=== PATIENT | female | born 1940 | race Caucasian/White ===

== ENCOUNTER 2017-10-23 08:06 | Outpatient (CLI) | payer MEDICARE ==
--- NOTE | 2017-10-23 10:00 | MRI ---
NONCONTRAST ENHANCED MRI LUMBAR SPINE: Date: 10-23-17 Comparison: 04-06-15 Technique: Multiplanar, multisequence noncontrast enhanced MRI images of the lumbar spine obtained. FINDINGS: Images demonstrate a small syrinx in the conus medullaris in the lower thoracic spine. T12-L1: There is a broad based central disc protrusion minimally but not significantly compressing th e thecal sac. The neural foramen are patent. L1-2: There is a broad based central disc protrusion minimally but not significantly compressing the thecal sac. The neural foramen are patent. L2-3: There is a broad based disc bulge with bilateral facet hypertrophy seen. No significant degree of central or neural foraminal narrowing is seen. L3-4: There is bilateral facet hypertrophy and ligamentum flavum hypertrophy. There is some minimal b road based disc bulge extending into the neural foramen. This results in mild to moderate left L3-4 n eural foraminal narrowing and minimal right sided neural foraminal narrowing. This is unchanged since the previous comparison exam. L4-5: Disc desiccation is seen. There is disc space height loss seen. There is a broad based disc bul ge with bilateral facet and ligamentum flavum hypertrophy. This results in moderate to severe central and lateral recess stenosis. The neural foramen demonstrate moderate bilateral neural foraminal narr owing due to the facet hypertrophy as well as the broad based disc bulge. This is stable and unchange d since the previous comparison exam. L5-S1: There is a mild broad based disc bulge and bilateral facet hypertrophy. No significant degree of central stenosis seen. Mild bilateral neural foraminal narrowing is seen. IMPRESSION: 1. Stable conus medullaris syrinx. 2. Multilevel lumbar degenerative changes with the most significant degree of stenosis being L4-5 res ulting in central and lateral recess stenosis as well as some neural foraminal narrowing. Overall MRI appearance is stable and unchanged since the previous comparison exam. POS: [facility]
== END 2017-10-23 08:07 | disposition home or self-care (01) ==
LOC: TBSIIMAG 08:06
PROVIDERS: ATTEND Anesthesiology Pain Medicine
DX: M47.26 Other spondylosis with radiculopathy, lumbar region (principal); M48.061 Spinal stenosis, lumbar region without neurogenic claudication; M99.83 Other biomechanical lesions of lumbar region
CPT/HCPCS: 72148

== ENCOUNTER 2018-03-19 09:11 | Outpatient (CLI) | payer MEDICARE | END 2018-03-19 09:12 | disposition home or self-care (01) | LOC: BICRAD 09:11 | PROVIDERS: ATTEND Anesthesiology Pain Medicine | DX: M16.0 Bilateral primary osteoarthritis of hip (principal); M47.896 Other spondylosis, lumbar region ==

== ENCOUNTER 2018-05-23 10:37 | Outpatient (CLI) | payer MEDICARE | END 2018-05-23 10:38 | disposition home or self-care (01) | LOC: LABBT 10:37 | PROVIDERS: ATTEND Neurological Surgery | DX: Z01.818 Encounter for other preprocedural examination (principal); M54.16 Radiculopathy, lumbar region | CPT/HCPCS: 93005; 93010 ==

== ENCOUNTER 2018-05-29 06:37 | Day surgery (SDC) | payer MEDICARE ==
[2018-05-23 10:41] VITALS: BMI 27.4
--- NOTE | 2018-05-29 07:14 | HP ---
HISTORY: Ms. Oleary is a 78-year-old woman known to us from previous evaluation of cervical pain wh o presents today for chronic left-sided thigh pain well as some anterior right thigh pain that she mcintyre s been receiving injections with Dr. Prakash for. She reports that the injections have been help ful but only for a limited period of time. She has an MRI that reveals lateral recess stenosis at L4 -5 L5 nerve root on the left. There is also some moderate foraminal stenosis associated there as well. She does have significant bilateral hip arthropathy, so this could also be a cause of her a nterior thigh pain as the pathology on the right at L4 and L3 is mild. I discussed her possible surg ical intervention and she hopes to proceed. PAST MEDICAL HISTORY: Significant for hypercholesterolemia, glaucoma, hypertension, arthritis, seaso nal allergies, hypercholesterolemia. PAST SURGICAL HISTORY: section x2; rectal surgery, unspecified; bladder sling; hysterectomy ; cholecystectomy; foot bunion resection; right knee replacement. CURRENT MEDICATIONS: Carvedilol, trazodone, fosinopril, sertraline, aspirin, poly glycol, Crestor. ALLERGIES: No known drug allergies. PHYSICAL EXAMINATION: The patient's motor sensory gait is mildly antalgic. Lower extremity motor ex am is normal. ASSESSMENT: Lumbar stenosis and radiculopathy. PLAN: Dr. Quezada met with the patient, reviewed imaging and offered for an L4-L5 decompression. He e xplained to the patient the risks, benefits, and alternatives of the procedure. The patient expresse d understanding. discussed. I do believe the patient is mentally competent and capable of niki ing medical decisions for herself and therefore her surgery was planned.
[2018-05-29] MEDS ORDERED: Levofloxacin 500 mg/D5W 100 ml Premix Bag ONE (07:34)
[2018-05-29] MEDS ORDERED: Clindamycin/D5W 900 mg/50 ml Premix Bag ONE (07:34)
[2018-05-29] MEDS ORDERED: Bupivacaine HCl 0.5%/Epinephrine 1:200,000/PF 30 ml Vial ONE (08:34)
[2018-05-29] MEDS ORDERED: Fentanyl 100 MCG/2 ML VIAL ONE (08:38)
--- NOTE | 2018-05-29 13:00 | OP ---
DATE OF PROCEDURE: 05/29/2018 SURGEON: Jake Quezada M.D. [facility] [employer] PROFESSOR: Edgar Coreas PA-C. INDICATION: Pain. DIAGNOSIS: Lumbar stenosis. PROCEDURE PERFORMED: L4-L5 lumbar decompression. ANESTHESIA: General. TECHNIQUE: The patient was brought into the operating room and placed under general anesthesia. She was flipped from a supine to prone position on the operating room table. A linear incision was plan danie over the L4-L5 segment. After prepping and draping and after an appropriate operative pause, the incision was created. Soft tissues were swept away from midline. A self-retaining retractor was pl aced in the wound for optimal exposure. After confirming the appropriate level with C-arm fluoroscop y, an Adson rongeur as well as a high-speed cutting drill bit as well as 2, 3 and 4 mm Kerrisons were used to perform a laminectomy along the inferior aspect of L4 and the superior aspect of L5. After complete decompression of the L4-L5 segment, the wound was irrigated. Hemostasis was maintained thro ughout. The wound was then closed in anatomic layers and a pressure dressing was applied. There wer e no known procedural complications.
== END 2018-05-29 12:25 | disposition home or self-care (01) ==
LOC: SDC 06:37
PROVIDERS: ATTEND Neurological Surgery
PROC: 01NB0ZZ Release Lumbar Nerve, Open Approach (ICD-10-PCS; principal; 2018-05-29)
DX: M48.061 Spinal stenosis, lumbar region without neurogenic claudication (principal); M54.16 Radiculopathy, lumbar region; E78.00 Pure hypercholesterolemia, unspecified; I10 Essential (primary) hypertension; M19.90 Unspecified osteoarthritis, unspecified site; Z79.82 Long term (current) use of aspirin; Z79.899 Other long term (current) drug therapy; Z96.651 Presence of right artificial knee joint; Z88.0 Allergy status to penicillin; Z88.2 Allergy status to sulfonamides; Z88.5 Allergy status to narcotic agent; Z88.8 Allergy status to other drugs, medicaments and biological substances; Z91.041 Radiographic dye allergy status
CPT/HCPCS: 76001; J0131; J0670; J1956; J3010; J3490

== ENCOUNTER 2018-12-03 08:56 | Outpatient (CLI) | payer MEDICARE ==
--- NOTE | 2018-12-03 09:43 | RAD ---
LUMBAR SPINE 2 VIEWS AP AND LATERAL: HISTORY: Fall with back pain. COMPARISON: Correlation is made to MRI lumbar spine from October 2017. FINDINGS: Lumbar vertebrae maintain height. The slight posterior listhesis at L1-2 appears stable from prior e xam. Loss of disk space at L4-5 and L5-S1 is stable from the MRI. Facet hypertrophy is noted. Dege nerative osteophytes. Mild wedging of the T12 vertebra is seen. This appears slightly more prominent than on the prior MRI . I cannot exclude an acute anterior wedge deformity. MRI could be performed to assess for edema of this vertebra if indicated. IMPRESSION: 1. Degenerative changes in the lumbar spine appear stable from prior MRI as described. 2. Mild anterior wedging of T12 may be slightly more prominent than on the prior MRI. POS: [facility]
== END 2018-12-03 08:57 | disposition home or self-care (01) ==
LOC: BICRAD 08:56
PROVIDERS: ATTEND Family Medicine
DX: W19.XXXA Unspecified fall, initial encounter (principal); M47.816 Spondylosis without myelopathy or radiculopathy, lumbar region
CPT/HCPCS: 72100

== ENCOUNTER 2018-12-20 08:19 | Outpatient (CLI) | payer MEDICARE ==
--- NOTE | 2018-12-20 09:28 | BD ---
BONE DENSITOMETRY: INDICATIONS: Postmenopausal osteoporosis screening. FINDINGS: BMD T-SCORE L1 0.909 -0.7 L2 0.931 -0.9 L3 1.037 -0.4 L4 1.055 -0.1 TOTAL 0.990 -0.5 FEMORAL NECK 0.651 -1.8 TOTAL 0.886 -0.5 IMPRESSION: 1. Bone mineral density of the lumbar spine within the normal range. 2. Bone mineral density of the femoral neck indicates osteopenia. TEN YEAR FRACTURE RISK: Major osteoporotic fracture: 14% Hip fracture: 3.4% POS: [facility]
== END 2018-12-20 08:20 | disposition home or self-care (01) ==
LOC: BICMAMMO 08:19
PROVIDERS: ATTEND Family Medicine
DX: Z13.820 Encounter for screening for osteoporosis (principal); S22.000A Wedge compression fracture of unspecified thoracic vertebra, initial encounter for closed fracture; M85.859 Other specified disorders of bone density and structure, unspecified thigh
CPT/HCPCS: 77080

== ENCOUNTER 2018-12-24 09:31 | Outpatient (CLI) | payer MEDICARE ==
--- NOTE | 2018-12-24 11:28 | MRI ---
MRI CERVICAL SPINE WITHOUT CONTRAST: HISTORY: Cervical spondylosis with radiculopathy. Numbness in the right arm times many years. Neck pain. COMPARISON: 03/06/2014 FINDINGS: Stable straightening of the normal cervical lordosis. There is 2.7 mm of anterolisthesis of C4 upon C5 and 2.3 mm of anterolisthesis of T1 upon T2. Cervical spine vertebral body height is maintained. No fracture. No significant STIR hyperintensity to suggest vertebral body edema or liga mentous injury. The visualized brain parenchyma, cervicomedullary junction, cervical cord, and upper thoracic cord have normal size and signal intensity. Redemonstration of an incidental hemangi chery along the left aspect of T3. C2-C3: No ssignificant central canal stenosis or neural foraminal narrowing. C3-C4: Broad-based disk osteophyte complex abuts the thecal sac. Ventral subarachnoid space is main tained. Moderate bilateral foraminal narrowing due to uncovertebral and facet hypertrophy. C4-C5: Broad-based disk osteophyte complex abuts the thecal sac. Mild to moderate central canal glenda nosis. Moderate to severe right and moderate left foraminal narrowing due to uncovertebral hypertrophy and right facet hypertrophy. C5-C6: Broad-based disk osteophyte complex with moderate central canal stenosis. Moderate to severe right and moderate left foraminal narrowing due to uncovertebral hypertrophy. C6-C7: Broad-based disk osteophyte complex abuts the thecal sac. Mild to moderate central canal glenda nosis. Moderate right and mild left foraminal narrowing. C7-T1: No significant central canal stenosis or neural foraminal narrowing. IMPRESSION: Degenerative changes of cervical spine, as detailed above. Transcribed Date/Time: 12/24/2018 12:34 PM
== END 2018-12-24 09:32 | disposition home or self-care (01) ==
LOC: BICMRI 09:31
PROVIDERS: ATTEND Anesthesiology Pain Medicine
DX: M47.22 Other spondylosis with radiculopathy, cervical region (principal)
CPT/HCPCS: 72141

== ENCOUNTER 2019-07-14 14:37 | Outpatient (CLI) | payer MEDICARE ==
--- NOTE | 2019-07-14 15:10 | MMO ---
Bilateral MAMMO Bilat Screen [facility]. CLINICAL HISTORY: Patient is 79 years old and is seen for screening. The patient has no family history of breast cancer. The patient has no personal history of cancer. VIEWS: The views performed were: bilateral craniocaudal with tomosynthesis; bilateral mediolateral oblique with tomosynthesis; and left exaggerated craniocaudal. FILMS COMPARED: The present examination has been compared to prior imaging studies performed at [facility] on 03/28/2012 and 04/11/2013. This study has been interpreted with the assistance of computer-aided detection. MAMMOGRAM FINDINGS: There are scattered fibroglandular densities. There are vascular calcifications seen in both breasts. There are no suspicious masses, suspicious calcifications, or new areas of architectural distortion. IMPRESSION: A ROUTINE FOLLOW-UP MAMMOGRAM IN 1 YEAR IS RECOMMENDED. THE RESULTS OF THIS EXAM WERE SENT TO THE PATIENT. ACR BI-RADS Category 2 - Benign finding MAMMOGRAPHY NOTE: 1. A negative mammogram report should not delay a biopsy if a dominant of clinically suspicious mass is present. 2. Approximately 10% to 15% of breast cancers are not detected by mammography. 3. Adenosis and dense breasts may obscure an underlying neoplasm. Reported by: JOSH JESUS MD Electonically Signed: [id number]
== END 2019-07-14 14:38 | disposition home or self-care (01) ==
LOC: BICMAMMO 14:37
PROVIDERS: ATTEND Family Medicine
DX: Z12.31 Encounter for screening mammogram for malignant neoplasm of breast (principal)
CPT/HCPCS: 77063; 77067

== ENCOUNTER 2020-08-09 10:29 | Outpatient (CLI) | payer MEDICARE ==
--- NOTE | 2020-08-09 11:42 | MRI ---
MR the lumbar spine without contrast: 08/09/2020 History: Lumbar stenosis with neurogenic claudication COMPARISON: 10/23/2017 TECHNIQUE: Multiplanar multisequence MR images were obtained of lumbar spine without IV contrast FINDINGS: On the basis of 5 lumbar type vertebral bodies, conus medullaris terminates at theL1-2 level. The dis pablito cord demonstrates a stable small caliber syrinx, incompletely imaged on this exam. Sagittal STIR imaging demonstrates no focal area of osseous marrow edema. T12-L1:There is disc desiccation and a small central disc osteophyte complex with partial effacement of the ventral thecal sac and mild stable central canal stenosis. Bilateral facet hypertrophy with no significant neural foraminal stenosis. L1-2:There is disc space narrowing with disc desiccation and anterior osteophyte formation. There is a disc osteophyte complex which is more prominent than on the prior examination and most significantly affects the right paracentral region. Mild central canal stenosis/right lateral recess stenosis. Mild bilateral facet hypertrophy with no significant neural foraminal stenosis L2-3:Disc space narrowing with disc desiccation and mild disc bulge, slightly worsened. Mild bilatera l facet hypertrophy. No significant central canal or neural foraminal stenosis. L3-4:Mild bilateral facet hypertrophy. There is disc space narrowing with disc desiccation and mild d isc bulge. No significant right neural foraminal stenosis. Mild central canal stenosis and a left neural foraminal stenosis. L4-5:There is disc space narrowing with disc desiccation and mild disc bulge, similar when compared t o prior imaging. No central canal stenosis. Bilateral facet hypertrophy noted with moderate/severe bilateral neural foraminal stenosis, left greater than right. L5-S1:There is disc space narrowing with disc desiccation and mild disc bulge, similar when compared to prior imaging. Bilateral facet hypertrophy noted with moderate/severe right neural foraminal stenosis and mild left neural foraminal stenosis. No significant central canal stenosis. Image retroperitoneal structures demonstrateno acute findings. IMPRESSION: Multilevel lumbar spine degenerative change as detailed above.
== END 2020-08-09 10:30 | disposition home or self-care (01) ==
LOC: BICMRI 10:29
PROVIDERS: ATTEND Anesthesiology Pain Medicine
DX: M48.062 Spinal stenosis, lumbar region with neurogenic claudication (principal); M47.816 Spondylosis without myelopathy or radiculopathy, lumbar region
CPT/HCPCS: 72148

== ENCOUNTER 2020-11-17 10:28 | Outpatient (CLI) | payer MEDICARE, OTHER | END 2020-11-17 10:29 | disposition home or self-care (01) | LOC: BICMRI 10:28 | PROVIDERS: ATTEND Anesthesiology Pain Medicine | DX: M48.061 Spinal stenosis, lumbar region without neurogenic claudication (principal) | CPT/HCPCS: 72110; 72148 ==

== ENCOUNTER 2021-08-15 10:36 | Outpatient (CLI) | payer MEDICARE | END 2021-08-15 10:37 | disposition home or self-care (01) | LOC: BICRAD 10:36 | PROVIDERS: ATTEND Anesthesiology Pain Medicine | DX: M16.12 Unilateral primary osteoarthritis, left hip (principal) ==

== ENCOUNTER 2021-10-13 09:40 | Outpatient (CLI) | payer MEDICARE | END 2021-10-13 09:41 | disposition home or self-care (01) | LOC: BICMAMMO 09:40 | PROVIDERS: ATTEND Family Medicine | DX: Z12.31 Encounter for screening mammogram for malignant neoplasm of breast (principal) | CPT/HCPCS: 77063; 77067 ==

== ENCOUNTER 2022-01-26 19:30 | Outpatient (CLI) | payer OTHER | END 2022-01-26 19:31 | disposition home or self-care (01) | LOC: SLEEPLAB 19:30 | PROVIDERS: ATTEND Family Medicine | DX: G47.33 Obstructive sleep apnea (adult) (pediatric) (principal); R09.89 Other specified symptoms and signs involving the circulatory and respiratory systems; R06.83 Snoring; G47.00 Insomnia, unspecified; G47.10 Hypersomnia, unspecified; I10 Essential (primary) hypertension | CPT/HCPCS: 95810 ==

== ENCOUNTER 2022-03-30 19:00 | Outpatient (CLI) | payer OTHER | END 2022-03-30 19:01 | disposition home or self-care (01) | LOC: SLEEPLAB 19:00 | PROVIDERS: ATTEND Family Medicine | DX: G47.33 Obstructive sleep apnea (adult) (pediatric) (principal); R09.89 Other specified symptoms and signs involving the circulatory and respiratory systems; R06.83 Snoring; G47.00 Insomnia, unspecified; G47.10 Hypersomnia, unspecified; E66.9 Obesity, unspecified; Z68.24 Body mass index [BMI] 24.0-24.9, adult | CPT/HCPCS: 95811 ==

== ENCOUNTER 2022-11-09 10:52 | Outpatient (CLI) | payer MEDICARE, OTHER | END 2022-11-09 10:53 | disposition home or self-care (01) | LOC: BICMAMMO 10:52 | PROVIDERS: ATTEND Family Medicine | DX: Z12.31 Encounter for screening mammogram for malignant neoplasm of breast (principal) | CPT/HCPCS: 77063; 77067 ==

== ENCOUNTER 2025-02-12 10:16 | Outpatient (CLI) | payer OTHER | END 2025-02-12 10:17 | disposition home or self-care (01) | LOC: BICMAMMO 10:16 | PROVIDERS: ATTEND Family Medicine | DX: Z12.31 Encounter for screening mammogram for malignant neoplasm of breast (principal); M85.89 Other specified disorders of bone density and structure, multiple sites | CPT/HCPCS: 77063; 77067; 77080 ==